=== PATIENT | male | born 1990 | race American Indian/Alaskan Native ===

== ENCOUNTER 2020-01-14 08:51 | Emergency (ER) | payer BC ==
[2020-01-14 09:12] VITALS: BP 132/87
--- NOTE | 2020-01-14 09:47 | XRay Report ---
RIGHT ANKLE RADIOGRAPH, 3 VIEWS INDICATION / CLINICAL INFORMATION: right ankle injury COMPARISON: None available. FINDINGS: BONES / JOINT(S): There is a tiny ossific density along the inferior margin of the medial malleolus w hich may reflect a small avulsed fracture fragment. No additional acute displaced fracture identified . Ankle mortise is maintained. SOFT TISSUES: Mild diffuse soft tissue swelling about the ankle. ADDITIONAL FINDINGS: None. Signer Name: Azeb Blair MD Signed: 01/14/2020 9:43 AM Workstation Name: [id number]
--- NOTE | 2020-01-14 12:17 | Emergency Department Report ---
ED Lower Extremity HPI - General Chief Complaint: Extremity Injury, Lower Stated Complaint: RT LEG/RT ANKLE PAIN Source: patient Mode of arrival: Ambulatory Limitations: No Limitations - History of Present Illness Initial Comments: The patient was evaluated in the emergency department for symptoms described in the history of present illness. He/she was evaluated in the context of the global COVID-19 pandemic, which necessitated consideration that the patient might be at risk for infection with the virus that causes COVID-19. Institutional protocols and algorithms that pertain to the evaluation of patients at risk for COVID-19 are in a state of rapid change based on information released by regulatory bodies including the CDC and federal and state organizations. These policies and algorithms were followed during the patient's care in the emergency department. Please note that these policies, procedures and recommendations changed on a rapid basis. 29-year-old -[place] male presents to the emergency room complaining of right ankle pain and swelling. Patient reports that he was playing with his children at home last night when he reinjured his right ankle. Patient reports he did take an naproxen last night it helped with his pain when he was able to sleep. Patient presents now with pain 8 out of 10. Reports difficulty bearing weight. He does report he has a history of right ankle pain since high school and in the and actually has an appointment on Thursday with the orthopedic provider at the [place]. Complaint: ankle injury -: Last night Injury: Ankle: Right Type of Injury: inversion Place: home Severity: severe Severity scale (0 -10): 8 Improves With: nothing Worsens With: weight bearing Context: direct blow Associated Symptoms: swelling, able to partially bear weight - Related Data Allergies Allergy/AdvReac Type Severity Reaction Status Date / Time No Known Allergies Allergy Unverified 01/14/20 09:07 ED Review of Systems ROS: Stated complaint: RT LEG/RT ANKLE PAIN Other details as noted in HPI ED Past Medical Hx - Past Medical History Previous Medical History?: No - Surgical History Past Surgical History?: No - Social History Smoking Status: Current Every Day Smoker Substance Use Type: Alcohol ED Physical Exam - General Limitations: No Limitations ED Course Vital Signs 01/14/20 09:10 Temperature 98.7 F Pulse Rate 83 Respiratory 20 Rate Blood Pressure 132/87 O2 Sat by Pulse 97 Oximetry ED Lower Extremity MDM - Radiology Data Radiology results: report reviewed Referring Physician:ED DOCPatient Name:FAISAL BHARDWAJPatient ID:[id number] of :[id number]:MaleAccession:[id number] Date:[id number] Status:Finalized Findings [facility] [address] [place] [address] XRay Report Signed Patient: FAISAL BHARDWAJ MR#: [id number] : 1990 Acct:[id number] Age/Sex: 29 / M ADM Date: 01/14/20 Loc: ED Attending Dr: Ordering Physician: ED MD JAUN Date of Service: 01/14/20 Procedure(s): XR ankle 3+V RT Accession Number(s): [id number] cc: ED MD JAUN Fluoro Time In Minutes: RIGHT ANKLE RADIOGRAPH, 3 VIEWS INDICATION / CLINICAL INFORMATION: right ankle injury COMPARISON: None available. FINDINGS: BONES / JOINT(S): There is a tiny ossific density along the inferior margin of the medial malleolus which may reflect a small avulsed fracture fragment. No additional acute displaced fracture identified. Ankle mortise is maintained. SOFT TISSUES: Mild diffuse soft tissue swelling about the ankle. ADDITIONAL FINDINGS: None. Signer Name: Azeb Blair MD Signed: 01/14/2020 9:43 AM Workstation Name: [id number] Transcribed By: [facility] Dictated By: Azeb Blair MD Electronically Authenticated By: Azeb Blair MD Signed Date/Time: 01/14/20942 DD/ 0 TD/TT: - Medical Decision Making 29-year-old -[place] male presents to the emergency room complaining of right ankle pain and swelling. Patient reports that he was playing with his children at home last night when he reinjured his right ankle. Patient reports he did take an naproxen last night it helped with his pain when he was able to sleep. Patient presents now with pain 8 out of 10. Reports difficulty bearing weight. He does report he has a history of right ankle pain since high school and in the and actually has an appointment on Thursday with the orthopedic provider at the [place]. Patient is had an x-ray there is shows a possible avulsion fracture patient reports that he has had that before. Patient be placed in a air splint and instructed to wear his ankle splint with the metal rods for support. Patient is to continue with the naproxen. Keep his appointment for Thursday with orthopedic at the [place]. Critical care attestation.: If time is entered above; I have spent that time in minutes in the direct care of this critically ill patient, excluding procedure time. ED Disposition Clinical Impression: Ankle injury Qualifiers: Encounter type: initial encounter Laterality: right Qualified Code(s): S99.911A - Unspecified injury of right ankle, initial encounter Disposition: TO HOME OR SELFCARE Is pt being admited?: No Does the pt Need Aspirin: No Condition: Stable Instructions: Ankle Sprain, [id number] Additional Instructions: Follow-up with your orthopedic provider with the [place]. Wear the Aircast or use your ankle splint with the metal rods to give support. Ice elevate take your pain medication. Referrals: PRIMARY CARE, [Primary Care Provider] - 3-5 Days [facility] [Outside] - 3-5 Days
== END 2020-01-14 12:25 | disposition home or self-care (01) ==
LOC: ED 08:51
DX: S99.911A Unspecified injury of right ankle, initial encounter (principal); F17.200 Nicotine dependence, unspecified, uncomplicated; X58.XXXA Exposure to other specified factors, initial encounter; Y93.89 Activity, other specified; Y92.89 Other specified places as the place of occurrence of the external cause; Y99.8 Other external cause status